=== PATIENT | male | born 1980 | race Caucasian/White ===

== ENCOUNTER 2019-09-07 13:53 | Outpatient (CLI) | payer BC | END 2019-09-07 14:06 | disposition home or self-care (01) | LOC: RAD 13:53 | DX: M25.572 Pain in left ankle and joints of left foot (principal) ==

== ENCOUNTER → 2019-09-08 | Outpatient (CLI) | payer BC | END | disposition home or self-care (01) | LOC: TOM 08:11 | DX: S93.612A Sprain of tarsal ligament of left foot, initial encounter (principal) ==

== ENCOUNTER 2019-09-14 07:27 | Outpatient (CLI) | payer BC | END 2019-09-14 07:29 | disposition home or self-care (01) | LOC: RAD 07:27 | DX: S92.335A Nondisplaced fracture of third metatarsal bone, left foot, initial encounter for closed fracture (principal); S92.345A Nondisplaced fracture of fourth metatarsal bone, left foot, initial encounter for closed fracture ==

== ENCOUNTER → 2019-10-05 | Outpatient (CLI) | payer BC | END | disposition home or self-care (01) | LOC: RAD 13:22 | DX: S92.335D Nondisplaced fracture of third metatarsal bone, left foot, subsequent encounter for fracture with routine healing (principal); S92.345D Nondisplaced fracture of fourth metatarsal bone, left foot, subsequent encounter for fracture with routine healing ==